=== PATIENT | female | born 1950 | race Caucasian/White ===

== ENCOUNTER 2023-10-03 14:54 | Emergency (ER) | payer MEDICARE ==
[~2023-10-03] VITALS: Ht 160 cm; Wt 59.0 kg
[2023-10-03] MEDS ORDERED: LIDOCAINE 5% (PATCH) 1 EA PATCH TP ONE (16:03)
[2023-10-03] MEDS ORDERED: KETOROLAC TROMETHAMINE INJ 30 MG/ML VIAL ONE (16:03)
[2023-10-03] MEDS ORDERED: CYCLOBENZAPRINE 10 MG TABLET ONE (16:03)
[2023-10-03] MEDS ORDERED: ACETAMINOPHEN ES 500 MG TABLET ONE (16:03)
[2023-10-03] MEDS: CYCLOBENZAPRINE 10 MG TABLET PO ONE (16:07)
[2023-10-03] MEDS: KETOROLAC TROMETHAMINE INJ 30 MG/ML VIAL IM ONE (16:07)
[2023-10-03] MEDS: LIDOCAINE 5% (PATCH) 1 EA PATCH TP SCH (16:07)
[2023-10-03] MEDS: ACETAMINOPHEN ES 500 MG TABLET PO ONE (16:07)
[2023-10-03] MEDS ORDERED: LIDO700A30 TP (17:40)
[2023-10-03] MEDS ORDERED: CYCL10TA9 PO (17:40)
[2023-10-03 17:50] VITALS: BP 125/88; TEMP 97.9; O2SAT 99
== END 2023-10-03 18:01 | disposition home or self-care (01) ==
LOC: ER 14:57 → EDSEX 14:57 → ER 18:01
DX: M54.41 Lumbago with sciatica, right side (principal)
CPT/HCPCS: 99284; 96372; J1885